=== PATIENT | female | born 1960 | race Caucasian/White ===

== ENCOUNTER 2017-06-26 10:00 | Observation (INO) | payer OTHER ==
[2017-06-26 10:38] LABS: #Basophils 0.1 thou/uL (0.0-0.2); #Eosinphils 0.1 thou/uL (0.0-0.7); #Lymphocytes 1.4 thou/uL (1.20-3.40); #Monocytes 0.4 thou/uL (0.11-0.59); #Neutrophils 3.2 thou/uL (1.40-6.50); %Basophils 1.5 % (0.0-1.0); %Eosinophils 2.4 % (0.0-10.0); %Monocytes 7.6 % (0.0-10.0); Hematocrit 38.8 % (36.0-47.0); Mean Platelet Volume 8.4 fL (7.4-10.4); White Blood Cell (WBC) Count 5.2 thou/uL (4.8-10.8)
[2017-06-26 10:47] LABS: ALT (SGPT) 27 U/L (8-55); AST (SGOT) 22 U/L (5-34); Alkaline Phosphatase 188 U/L (40-150); Anion Gap 14 mmol/L (10-20); BUN (Urea Nitrogen) 6 mg/dL (9.8-20.1); Bilirubin, Total 0.5 mg/dL (0.2-1.2); CK (CPK) 87 U/L (29-168); Calc. Creatinine Clearance 0 mL/min (70-130); Calcium 9.3 mg/dL (7.8-10.44); Carbon Dioxide 29 mmol/L (22-29); Chloride 98 mmol/L (98-107); Estimated GFR-MDRD 71; Globulin 3.2 g/dL (2.4-3.5); Lipase 36 U/L (8-78); Protein, Total 7.5 g/dL (6.0-8.3); Troponin I Less than 0.010 ng/mL (< 0.028)
--- NOTE | 2017-06-26 10:52 | RAD ---
PORTABLE CHEST ONE VIEW 06/26/2017 at 10:37 a.m. HISTORY: Chest pain and hypertension. FINDINGS: The heart size is normal. The lungs are expanded without focal areas of consolidation, pneumothorax , or pleural effusions. IMPRESSION: No radiographic evidence of acute cardiopulmonary process. POS: [facility]
[2017-06-26 13:54] VITALS: BMI 27.6
[2017-06-26] MEDS ORDERED: Ondansetron ODT 4 MG TAB SL PRN (13:58)
[2017-06-26] MEDS ORDERED: Acetaminophen 325 MG TAB PO PRN ×2 (13:58→14:07)
[2017-06-26] MEDS ORDERED: Ondansetron HCl/PF 4 MG/2 ML Vial IVP PRN ×2 (13:58→14:07)
[2017-06-26] MEDS ORDERED: Mag-Al 1200 mg/1200 mg/30 ML UDCUP PO PRN (14:07)
[2017-06-26] MEDS ORDERED: Ondansetron ODT 4 MG TAB PO PRN (14:07)
[2017-06-26] MEDS ORDERED: Milk Of Magnesia 30 ML UDCUP PO PRN (14:07)
[2017-06-26] MEDS ORDERED: Senokot 8.6 MG TAB PO PRN (14:07)
[2017-06-26] MEDS ORDERED: Dextrose 5% in Water 1,000 ML IV PRN (14:07)
[2017-06-26] MEDS ORDERED: Zolpidem Tartrate 5 MG TAB PO PRN (14:07)
[2017-06-26] MEDS ORDERED: HumaLOG 300 UNITS/3 ML VIAL SC PRN (14:07)
[2017-06-26] MEDS ORDERED: HYDROcodone/Acetaminophen 5/325 mg Tablet PO PRN (14:07)
[2017-06-26] MEDS ORDERED: Loperamide HCl 2 MG CAP PO PRN (14:07)
[2017-06-26] MEDS ORDERED: Dextrose 50% Abboject 50 ML SYRINGE SLOW IVP PRN (14:07)
[2017-06-26 14:42] LABS: Troponin I 0.013 ng/mL (< 0.028)
--- NOTE | 2017-06-26 14:49 | HP ---
PRIMARY CARE PHYSICIAN: Cyndi Vidal M.D. REASON FOR ADMISSION: Transfer from [facility] for chest pain. HISTORY OF PRESENT ILLNESS: A 57-year-old female who has history of diabetes type 2, hypertension, gastroesophageal reflux disease who came to the emergency room with complaint of neck pain, shoulder pain and chest discomfort. The patient reports that for the last one week she was experiencing posterior headache and with headaches, she was getting neck pain and shoulder pain. Patient initially thought it may be related with a viral infection and she was taking antihistamine; and because of antihistamines, she was feeling jittery and anxious at home. Patient was also measuring her blood pressure and her blood pressure was also running on higher side. Patient was taking ibuprofen that was not helping. The patient also stopped taking her omeprazole for acid reflux, but she restarted taking for the last couple of days. Patient went to Urgent Care yesterday for all these symptoms and she was advised to go to the ED for EKG and blood work. Today, patient was at work and she was feeling burning, discomfort in her chest which she had yesterday as well as. Her nurse checked her blood pressure and it was very high and advised to go to the emergency room for evaluation. Patient denies any exertional related chest pain, palpitation, shortness of breath. She denies any UTI symptoms. She denies any fever or chills. She denies any abdominal pain. She denies any nausea, vomiting, or diaphoresis. She denies any constipation, diarrhea, melena or hematochezia. PAST MEDICAL HISTORY: History of diabetes type 2, hypertension, dyslipidemia, gout, history of morbid obesity and history of Meniere's disease. PAST SURGICAL HISTORY: Laparoscopic cholecystectomy in 1999 in [place], breast biopsy in 1990, hysterectomy in 1993, upper and lower endoscopy in 2010, bilateral carpal tunnel repair, trigger thumb and finger and tennis elbow repair , laparoscopic gastric bypass. PAST PSYCHIATRIC HISTORY: Anxiety and depression. ALLERGIES: No known drug allergies. SOCIAL HISTORY: Patient denies any tobacco, alcohol or illicit drug abuse. She is with 2 children. She works in school cafeteria. REVIEW OF SYSTEMS: Please see my HPI for pertinent positives and negatives. All other review of systems reviewed and negative except as mentioned in the HPI. Constitutional: Weight loss or gain, ability to conduct usual activities. Skin: Rash, itching. Eyes: Double vision, pain. ENT/Mouth: Nose bleeding, neck stiffness, pain, tenderness. Cardiovascular: Palpitations, dyspnea on exertion, orthopnea. Respiratory: Shortness of breath, wheezing, cough, hemoptysis, fever or night sweats. Gastrointestinal: Poor appetite, abdominal pain, heartburn, nausea, vomiting, constipation, or diarrhea. Genitourinary: Urgency, frequency, dysuria, nocturia. Musculoskeletal: Pain, swelling. Neurologic/Psychiatric: Anxiety, depression. Allergy/Immunologic: Skin rash, bleeding tendency. FAMILY HISTORY: No strong family history of premature coronary artery disease, stroke or cancer. CURRENT HOME MEDICATIONS: Januvia 100 mg p.o. daily, omeprazole 20 mg p.o. daily, carbidopa/levodopa 10/100 one tablet p.o. daily Oliveros 15 units subcu daily. EMERGENCY ROOM COURSE: Patient is given aspirin. PHYSICAL EXAMINATION: VITAL SIGNS: On arrival, blood pressure 166/72, pulse 78, respiratory rate 18, temperature 97.2, saturation 99% on room air, weight 68 kilograms. GENERAL: Patient is currently alert, awake, in no acute distress. HEENT: Normocephalic, atraumatic. Eyes: Pupils round, reactive to light. Extraocular muscles intact. ENT: Oropharynx within normal limits. Moist mucous membranes. No oral lesions. No pharyngeal erythema. No exudate. NECK: Supple. Range of motion is normal. No meningeal signs of irritation. LUNGS: Clear to auscultation without any rhonchi or rales. CARDIAC: S1, S2 regular without any murmur. ABDOMEN: Soft, bowel sounds present. Surgical scar is present. No organomegaly, no suprapubic tenderness. No peritoneal sign. BACK EXAMINATION: Unremarkable, no CVA tenderness. EXTREMITIES: Upper extremity passive movement of all joints are normal. Lower extremity passive movement of all joints are normal. Good peripheral pulsation , no edema. SKIN: No skin rash. HEMATOLOGICAL SYSTEM: No lymphadenopathy. PSYCHIATRIC: Normal affect. NEUROLOGIC: Nonfocal examination. The patient moves all 4 limbs. Plantar bilateral flexor. SIGNIFICANT LABS: EKG based on my review normal sinus rhythm, nonspecific ST-T changes. Chest x-ray based on my review, no acute cardiopulmonary process. CBC : WBC 5.2, hemoglobin 12.5, platelet 226,000. BMP shows sodium 137, potassium 4.3, chloride 98, carbon dioxide 23, BUN 6, creatinine 0.82. Glucose 325. Calcium 9.3. LFT: AST 22, ALT 27, alkaline phosphatase 188, albumin 4.3, lipase 36. CK 87, CK-MB 1.7, troponin I less than 0.010. ASSESSMENT AND PLAN/IMPRESSION: 1. Chest discomfort. This patient has burning chest discomfort, most likely symptoms consistent with acid reflux, but at the same time, this patient also has several risk factors for coronary artery disease including diabetes, dyslipidemia. We will keep this patient in the hospital for observation. We will do serial cardiac enzymes x3. We will perform Cardiolite stress test for diagnostic reason. Meanwhile, we will continue with aspirin 325 mg p.o. daily. For benefit of doubt, we will also continue Protonix 40 mg p.o. daily, nitropatch q.8 hourly. 2. Hypertension. Patient does not have previous history of hypertension and now her blood pressure runs high. We will start lisinopril 10 mg p.o. daily given her diabetes history and we will titrate blood pressure medication while in hospital. 3. History of dyslipidemia. We will check lipid profile and based on lipid profile, we will start statin therapy. 4. Diabetes type 2. We will continue Lantus insulin 15 units subcutaneous daily and Januvia 100 mg p.o. daily, Humalog insulin as per aggressive sliding scale. 5. Anxiety and depression. We will continue patient's home medication while in hospital after verifying her home medication. 6. Gastroesophageal reflux disease. We will continue Protonix 40 mg p.o. daily. CODE STATUS: The patient is FULL CODE. Patient does not have any surrogate decision maker. She is making her own decisions. DISPOSITION AND PLAN: Based on clinical course, likely within 24 hours pending stress test result. MTDD
[2017-06-26] MEDS ORDERED: cloNIDine HCl 0.1 MG TAB PO PRN (15:48)
[2017-06-26] MEDS ORDERED: Lisinopril 10 MG TAB PO SCH (16:15)
[2017-06-26 17:40] LABS: Troponin I Less than 0.010 ng/mL (< 0.028)
[2017-06-26] MEDS: HumaLOG 300 UNITS/3 ML VIAL SC PRN (18:07)
[2017-06-26] MEDS: Nitroglycerin 2% Ointment 1 INCH/1 GM Packet TOP SCH (20:53)
[2017-06-26] MEDS ORDERED: Carbidopa/Levodopa 10-100 mg Tablet PO SCH (21:00)
[2017-06-26] MEDS ORDERED: FLU VACC QS2017-18 36 mo. & older 0.5 ML SYRINGE IM ONE (21:00)
[2017-06-27] MEDS: Nitroglycerin 2% Ointment 1 INCH/1 GM Packet TOP SCH ×2 (06:29→14:00)
[2017-06-27] MEDS ORDERED: Alogliptin Benzoate 25 MG TABLET PO SCH (09:00)
[2017-06-27] MEDS ORDERED: Lisinopril 10 MG TAB PO SCH (09:00)
[2017-06-27] MEDS ORDERED: Aspirin 325 MG TAB PO SCH (09:00)
[2017-06-27] MEDS ORDERED: Insulin Detemir 100 UNITS/ML 15 UNITS in Pre-Filled Syringe 1 EACH SC SCH (09:00)
--- NOTE | 2017-06-27 10:12 | DIS ---
DATE OF ADMISSION: 06/26/2017 DATE OF DISCHARGE: 06/27/2017 PRIMARY CARE PHYSICIAN: Cyndi Vidal M.D. DISCHARGE DISPOSITION: Home. PRIMARY DISCHARGE DIAGNOSES: 1. Chest pain, ruled out acute coronary syndrome. 2. New onset of hypertension. SECONDARY DISCHARGE DIAGNOSES: Diabetes type 2, anxiety and depression, gastroesophageal reflux disease, and dyslipidemia. PRIMARY PROCEDURE/OPERATION: None. RADIOLOGICAL INVESTIGATION: Chest x-ray was normal. Stress test is negative. SIGNIFICANT LABORATORY DATA: CBC normal. BMP normal. LFT unremarkable. Cardiac enzymes negative x3. Lipase 36, LDL 119. DISCHARGE MEDICATIONS: Carbidopa/levodopa 10/100 one tablet p.o. at bedtime, Lexapro 10 mg p.o. daily, Toujeo SoloStar insulin 18 units subcutaneously daily , lisinopril 10 mg p.o. daily, omeprazole 20 mg p.o. daily, and Januvia 100 mg p.o. daily. CONTRAINDICATIONS: None. CODE STATUS: FULL CODE. INPATIENT CONSULTANTS: None. ALLERGIES: No known drug allergy. DISCHARGE PLAN: Post hospital, the patient will follow up with Dr. Cyndi Vidal in 1 week. HOSPITAL COURSE: A 57-year-old female who was struggling with headache as well as high blood pressure at home for about a week. She also had chest discomfort when she was at work and that is why she went to [facility] where she had routine workup and all workup was unremarkable. Her electrocardiogram was normal. Her chest x-ray was normal. We kept this patient in hospital and we did serial cardiac enzyme and that were negative. For benefit of doubt, we also did a stress test and official report is pending by the time of dictation. If stress test is negative, then we will consider discharging her home. This patient was having high blood pressure and that is why we started lisinopril therapy. Patient will follow up with primary care physician for further adjustment of therapy. The patient is seen and examined at bedside today. PHYSICAL EXAMINATION: VITAL SIGNS: Currently, temperature 98.7, pulse 67, respiratory rate 16, blood pressure 134/64, weight 161 pounds. GENERAL: The patient is alert, oriented, no acute distress. HEAD: Normocephalic, atraumatic. NECK: Supple, range of motion is normal. No meningeal signs of irritation. LUNGS: Clear to auscultation without any rhonchi or rales. CARDIAC: S1 and S2 regular without any murmur. ABDOMEN: Soft and benign. EXTREMITIES: No edema. NEUROLOGIC: Nonfocal examination. All review of systems reviewed and negative. If patient's stress test is negative, then I will consider discharging her home today. STRESS TEST IS NORMAL MTDD
[2017-06-27 13:16] VITALS: BP 117/57; TEMP 97.6
[2017-06-27] MEDS: HumaLOG 300 UNITS/3 ML VIAL SC PRN (14:02)
--- NOTE | 2017-06-27 14:55 | NM ---
NUCLEAR MEDICINE CARDIAC PERFUSION EXAMINATION WITH EJECTION FRACTION: COMPARISON: None. HISTORY: 57-year-old female with chest pain, hypertension, diabetes, and dyslipidemia. TECHNIQUE: A single day nuclear medicine cardiac perfusion examination was performed. Rest images were obtained using 9 mCi of technetium-99m sestamibi. Stress images were obtained giving 27.8 mCi of technetium- 99m sestamibi at the peak of exercise on a treadmill using a Pedro protocol. The patient did achieve greater than 85% maximum predicted heart rate. FINDINGS: Tomographic images show no fixed or reversible perfusion defects. Gated images show normal wall asya on with. Ejection fraction estimated at greater than 70%. EDV: 69 ml LHR: 0.3 TID: 1.0 IMPRESSION: No evidence of ischemia. POS: [facility]
== END 2017-06-27 14:49 | disposition home or self-care (01) ==
LOC: SCSER 10:00 → 2SW 11:28 → SCSER 12:57
PROVIDERS: ADMIT Internal Medicine; ATTEND Internal Medicine
DX: E11.9 Type 2 diabetes mellitus without complications (principal); R07.9 Chest pain, unspecified; K21.9 Gastro-esophageal reflux disease without esophagitis; I10 Essential (primary) hypertension; F41.9 Anxiety disorder, unspecified; F32.9 Major depressive disorder, single episode, unspecified; Z79.899 Other long term (current) drug therapy
CPT/HCPCS: 36415; 36416; 71010; 78452; 80053; 80061; 82553; 83690; 84484; 85025; 90471; 90682; 90732; 93005; 93017; 96374; A9500; G0008; G0009; G0378; J0360; J1815; Q2036

== ENCOUNTER 2018-06-29 09:00 | Outpatient (CLI) | payer OTHER ==
--- NOTE | 2018-06-29 11:32 | MRI ---
MRI LEFT WRIST: 06/29/2018 PROVIDED CLINICAL HISTORY: Left wrist pain. CORRELATION: Radiographs performed on 06/10/2018. FINDINGS: Evaluation is mildly limited by patient motion. The dorsal extensor and volar flexor tendons demonstrate an intact MR appearance. There is minimal edema present at the distal pole of the scaphoid, radially. There is no linear sign al alteration to suggest fracture. Nonspecific patchy periarticular signal alteration is present wit hin the proximal and distal radial carpal bones. Alignment appears anatomic. Joint spaces appear preserved. The amounts of fluid within the mid carp al, radial carpal, and distal radial ulnar joints is physiologic. No focal concerning regional marro w or muscular signal abnormality is apparent. The intrinsic wrist ligaments and TFC complex are not optimally evaluated, in the absence of joint distention, without gross abnormality apparent. The courses of the regional major neurovascular structures appear unremarkable. IMPRESSION: 1. Somewhat focal mild edema present at the distal pole of the scaphoid without linear signal altera tion to suggest fracture. This may reflect contusion or may be reactive to degenerative change. 2. No magnetic resonance findings to correspond to the suspected dorsal triquetral fracture. CT may be more useful in this regard, as indicated. POS: [facility]
== END 2018-06-29 09:01 | disposition home or self-care (01) ==
LOC: SCSMRI 09:00
PROVIDERS: ATTEND Orthopaedic Surgery Hand Surgery
DX: S62.015A Nondisplaced fracture of distal pole of navicular [scaphoid] bone of left wrist, initial encounter for closed fracture (principal); S62.115A Nondisplaced fracture of triquetrum [cuneiform] bone, left wrist, initial encounter for closed fracture; S63.502A Unspecified sprain of left wrist, initial encounter; M67.432 Ganglion, left wrist; R60.0 Localized edema

== ENCOUNTER 2018-10-07 13:20 | Emergency (ER) | payer OTHER ==
[2018-10-07] MEDS ORDERED: Acetaminophen 500 MG TAB ONE (14:19)
[2018-10-07] MEDS ORDERED: Meclizine HCl 25 MG TAB ONE (14:19)
[2018-10-07] MEDS ORDERED: Oxymetazoline HCl 0.05% ( 15 ML ) ONE (14:19)
== END 2018-10-07 15:24 | disposition home or self-care (01) ==
LOC: SCSER 13:20
DX: R51 Headache (principal); H93.19 Tinnitus, unspecified ear; I10 Essential (primary) hypertension; E11.9 Type 2 diabetes mellitus without complications; F41.9 Anxiety disorder, unspecified; F32.9 Major depressive disorder, single episode, unspecified; Z79.899 Other long term (current) drug therapy
CPT/HCPCS: 99283